=== PATIENT | male | born 2000 | race Hispanic/Latino ===

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

== ENCOUNTER 2021-03-27 19:44 | Emergency (ER) | payer OTHER ==
[~2021-03-27 19:44] MED LIST: Iopamidol 370 76% 100 ML VIAL ONE
[2021-03-27] MEDS ORDERED: Lactated Ringer's 1,000 ML ONE (20:15)
[2021-03-27] MEDS ORDERED: Lidocaine Viscous Sol 2% 15 ml UD Cup ONE (20:16)
[2021-03-27] MEDS ORDERED: Dicyclomine 10 MG CAP ONE (20:16)
[2021-03-27] MEDS ORDERED: Mag-Al Plus 1200 MG/1200 MG/120 MG/30 ML UDCUP ONE (20:16)
[2021-03-27 20:24] LABS: #Lymphocytes 1.9 thou/uL (1.20-3.40); #Monocytes 0.4 thou/uL (0.11-0.59); #Neutrophils 6.1 thou/uL (1.40-6.50); %Basophils 0.3 % (0.0-1.0); %Eosinophils 0.5 % (0.0-10.0); %Lymphocytes 22.1 % (28.0-48.0); %Monocytes 5.2 % (0.0-4.0); %Neutrophils 71.9 % (31.0-61.0); Hemoglobin 16.1 g/dL (14.0-18.0); Mean Corpuscular HGB CONC 33.4 g/dL (32.0-36.0); Mean Corpuscular Hemoglobin 28.9 pg (25.0-35.0); Mean Corpuscular Volume 86.6 fL (78.0-98.0); Mean Platelet Volume 7.8 fL (7.4-10.4); Platelet Count 243 thou/uL (130-400); RBC Distribution Width 11.7 % (11.5-14.5); Red Blood Cell (RBC) Count 5.56 mill/uL (4.00-5.20); White Blood Cell (WBC) Count 8.5 thou/uL (4.8-10.8)
[2021-03-27 20:43] LABS: ALT (SGPT) 16 U/L (8-55); AST (SGOT) 16 U/L (5-34); Alkaline Phosphatase 72 U/L (50-130); Anion Gap 14 mmol/L (10-20); BUN (Urea Nitrogen) 12 mg/dL (8.9-20.6); Bilirubin, Total 1.2 mg/dL (0.2-1.2); Calc. Creatinine Clearance 0 mL/min (70-130); Calcium 9.5 mg/dL (7.8-10.44); Carbon Dioxide 27 mmol/L (22-29); Chloride 103 mmol/L (98-107); Globulin 3.3 g/dL (2.4-3.5); Glucose 117 mg/dL (70-105); Lipase 31 U/L (8-78); Potassium 3.8 mmol/L (3.5-5.1); Protein, Total 8.3 g/dL (6.0-8.3); Sodium 140 mmol/L (136-145)
[2021-03-27] MEDS ORDERED: Metoclopramide HCl 10 MG/2 ML VIAL ONE (21:02)
[2021-03-27] MEDS ORDERED: Ketorolac Tromethamine 30 MG/ML VIAL ONE (21:02)
[2021-03-27] MEDS ORDERED: Famotidine In NaCl 20 mg/50 ml Premix Bag ONE (21:02)
[2021-03-27 21:31] LABS: Bilirubin Negative (Negative); Blood, Urine Negative (Negative); Clarity Clear (Clear); Glucose, Urine (Dipstick) Negative (Negative); Ketone, Urine Trace mg/dL (Negative); Leukocyte Negative (Negative); Nitrite Negative (Negative); Protein, Urine (Dipstick) 30 mg/dL (Neg-Trace); Specific Gravity, Urine 1.015 (1.005-1.030); pH, Urine 6.5 (5.0-9.0)
[2021-03-27 21:34] LABS: Mucous/LPF Rare LPF (<2+); RBC/HPF 0-3 HPF (0-3); Squamous Epithelial 0-3 HPF (0-3); WBC/HPF None Seen HPF (0-3)
== END 2021-03-27 21:58 | disposition short-term general hospital (02) ==
LOC: MADERS 19:44
DX: R10.11 Right upper quadrant pain (principal); R63.4 Abnormal weight loss
CPT/HCPCS: 74177; 80053; 81003; 81015; 83605; 83690; 85025; 96374; 96375; J0500; J1885; J2765; J7120; Q9967

== ENCOUNTER 2022-03-22 14:41 | Emergency (ER) | payer OTHER ==
[2022-03-22] MEDS ORDERED: Lidocaine 1% (PF) 30 ML VIAL ONE (15:17)
[2022-03-22] MEDS ORDERED: Bacitracin 1 PK ONE (16:51)
[2022-03-22] MEDS ORDERED: Ondansetron ODT 4 MG TAB ONE (17:00)
== END 2022-03-22 16:56 | disposition home or self-care (01) ==
LOC: MADERS 14:41
DX: S61.211A Laceration without foreign body of left index finger without damage to nail, initial encounter (principal); W26.0XXA Contact with knife, initial encounter
CPT/HCPCS: J2001; Q0162

== ENCOUNTER 2023-01-06 11:41 | Emergency (ER) | payer BC, OTHER ==
[2023-01-06] MEDS ORDERED: Ibuprofen 800 MG TAB ONE (13:10)
== END 2023-01-06 13:38 | disposition home or self-care (01) ==
LOC: MADERS 11:41
DX: S60.052A Contusion of left little finger without damage to nail, initial encounter (principal); W23.1XXA Caught, crushed, jammed, or pinched between stationary objects, initial encounter; Y99.0 Civilian activity done for income or pay